=== PATIENT | female | born 1990 | race Caucasian/White ===

== ENCOUNTER 2017-03-28 21:09 | Emergency (ER) | payer OTHER ==
[~2017-03-28] VITALS: Ht 165.1 cm; Wt 119.5 kg
[2017-03-28 21:19] VITALS: BP 165/97
== END 2017-03-28 22:15 | disposition home or self-care (01) ==
LOC: ED 22:12
DX: K04.7 Periapical abscess without sinus (principal); K21.9 Gastro-esophageal reflux disease without esophagitis; Z87.891 Personal history of nicotine dependence; Z90.49 Acquired absence of other specified parts of digestive tract
CPT/HCPCS: 99283

== ENCOUNTER 2021-04-27 04:51 | Emergency (ER) | payer MEDICAID, OTHER ==
[~2021-04-27] VITALS: Ht 165.1 cm; Wt 67.7 kg
[2021-04-27] MEDS ORDERED: IBUPROFEN 600 MG TABLET ONE (05:23)
[2021-04-27] MEDS ORDERED: IBUPROFEN 200 MG TABLET PO ONE (05:30)
[2021-04-27 05:59] LABS: CLUE CELLS NONE SEEN (NONE SEEN)
[2021-04-27 06:00] LABS: HCG UR SG 1.008 (1.003-1.030); MICROSCOPIC AUTO
[2021-04-27 06:00] LABS: WET PREP WBCS FEW (FEW)
[2021-04-27 06:35] VITALS: BP 118/72
--- NOTE | 2021-04-27 06:36 | NUR ---
Patient given discharge instructions and they have confirmed that they understand the instructions. Patient ambulatory with steady gait. NAD, all questions answered appropriately, denies additional needs at this time. No personal belongings left in room after discharge.
== END 2021-04-27 06:37 | disposition home or self-care (01) ==
LOC: ED 05:00
DX: N30.90 Cystitis, unspecified without hematuria (principal); F17.200 Nicotine dependence, unspecified, uncomplicated
CPT/HCPCS: 81001; 81025; 87077; 87081; 87086; 87147; 87186; 87210; 87491; 87591; 87808; 87880; 99283